=== PATIENT | male | born 1985 | race Caucasian/White ===

== ENCOUNTER → 2024-01-03 | Outpatient (CLI) | payer OTHER ==
--- NOTE | 2024-01-03 13:10 | FL ---
EXAMINATION TYPE: FL barium swallow DATE OF EXAM: 01/03/2024 CLINICAL INDICATION: 38-year-old male M96.A4, left-sided throat pain, sensation of something stuck th ere. Additional left-sided chest pressure. COMPARISON: None Total Fluoroscopy Time: 1 minute 42 seconds Total DAP: 209.6 mGycm2. 42 images obtained. FINDINGS: The swallowing mechanism is normal and hypopharyngeal anatomy is preserved. The patient in dicates the anterior left paramedian midneck as the symptomatic location. No radiopaque foreign body is identified. The cervical and thoracic portions have a normal course and caliber. Some occasional fine tertiary pe ristaltic contractions are noted. Otherwise, the mucosa is normal and no persistent filling defect is encountered. There is a tiny hiatal hernia demonstrated. Valsalva maneuver shows backfilling of the hiatal hernia but no gastroesophageal reflux during the course of the study. IMPRESSION: 1. The patient indicated the anterior left paramedian mid neck as the symptomatic location. No anatom ic abnormality or retained radiopaque foreign body is identified here. 2. Tiny hiatal hernia. Valsalva maneuver shows backfilling of contrast into the hiatal hernia but no gastroesophageal reflux. 3. Some occasional fine tertiary peristaltic contractions, but otherwise, without any significant abn ormality seen.
== END | disposition home or self-care (01) ==
LOC: RADUSWWP 10:41
PROVIDERS: ATTEND Family Medicine
DX: M96.A4 Flail chest associated with chest compression and cardiopulmonary resuscitation (principal); K44.9 Diaphragmatic hernia without obstruction or gangrene
CPT/HCPCS: 74220

== ENCOUNTER → 2024-05-30 | Outpatient (CLI) | payer MEDICARE, OTHER ==
--- NOTE | 2024-06-22 15:16 | US ---
EXAMINATION TYPE: US abdomen complete DATE OF EXAM: 06/21/2024 COMPARISON: 05/20/2012 CLINICAL INDICATION: Male, 38 years old with history of Pain intermittent x 1 year TECHNIQUE: Multiple sonographic images of the abdomen are obtained. FINDINGS: EXAM MEASUREMENTS: Liver Length: 15.1 cm Gallbladder: Surgically absent CBD: 0.3 cm Spleen: 10.4 cm Right Kidney: 10.1 x 5.6 x 5.3 cm Left Kidney: 10.7 x 6.4 x 4.9 cm Pancreas: wnl Liver: Hypoechoic. Limited detailed assessment probably in part due to patient body habitus. Gallbladder: Surgically absent Evidence for sonographic Sanford's sign: No CBD: wnl Spleen: wnl Right Kidney: wnl Left Kidney: wnl Upper IVC: wnl Abd Aorta: wnl IMPRESSION: 1. No gallstones or biliary ductal dilatation. 2. Hypoechoic liver possibly technical due to patient body habitus. Correlate with LFTs to exclude he patitis.
== END | disposition home or self-care (01) ==
LOC: RADUSWWP 12:00
PROVIDERS: ATTEND Family Medicine
DX: R10.13 Epigastric pain
CPT/HCPCS: 76700

== ENCOUNTER → 2024-08-29 | Outpatient (CLI) | payer MEDICARE, OTHER ==
--- NOTE | 2024-08-29 19:02 | CT ---
EXAMINATION TYPE: CT chest wo con DATE OF EXAM: 08/28/2024 COMPARISON: HISTORY: Chest pain, varying in intensity x1+ year. CT DLP: 382.9 mGycm, Automated exposure control for dose reduction was used. CONTRAST: Performed injected with 0 mL of Isovue 300. TECHNIQUE: Axial images were obtained at 5 mm thick sections. Reconstructed images are reviewed on [employer] computer in the coronal plane. FINDINGS: Portion of the thyroid visualized is normal. No suspicious lung nodules or focal infiltrates are present. No enlarged mediastinal or hilar adenopathy is evident. The ascending aorta diameter at the level o f the main pulmonary artery is 3.6 cm. The main pulmonary artery diameter at the bifurcation is 2.[address] sections are obtained through the upper abdomen. Abdomen is essentially unremarkable. Gall bladder is surgically absent IMPRESSION: 1. No acute pulmonary process CT chest [facility] Aman Moy, , 08/29/2024 6:59 PM
== END | disposition home or self-care (01) ==
LOC: RADCTMAIN 17:58
PROVIDERS: ATTEND Family Medicine
DX: R07.9 Chest pain, unspecified (principal)
CPT/HCPCS: 71250

== ENCOUNTER → 2024-10-03 | Outpatient (CLI) | payer MEDICARE, OTHER ==
--- NOTE | 2024-10-03 11:59 | CA ---
Exercise Stress Test Report Name: Mele Toledo Exam Date: 10/03/2024 11:09 Exam Location: [facility] Ht (in): 69 Wt (lb): 203 BSA: 2.08 Ordering Phys: Shayy Viramontes MD Referring Phys: SHAYY VIRAMONTES Technologist: Robinson Quiros Age: 38 Gender: M : 1985 Procedure CPT: Indications: R07.9 CHEST PAIN ICD-10 Codes: Patient History: Medications: ASPIRIN, IBUPROFEN, LOSARTAN Meds past 24 hrs: Pretest Chest Pain: STRESS TEST Thomas Protocol Exercise Duration (min:sec): 09:[address] Depressions (mm): Angina Score: Klein Score: Resting HR (bpm): 75 Peak HR (bpm): 157 Resting BP (mmHg): 135 / 83 Peak BP (mmHg): 205 / 65 MPHR: 181 Target HR: 154 % MPHR: 87 METS: 10.3 Total Dose: Peak Dose: Atropine: Double Product: 33111 BP Response: Stress Termination: Reached target heart rate Stress Symptoms: SLIGHTLY DIZZY Stress Summary: ECG ANALYSIS Resting ECG: Stress ECG: CONCLUSIONS Baseline EKG revealed a normal sinus rhythm without significant ST-T changes. Patient walked on a standard Thomas protocol for 9 minutes and achieved a maximum heart rate of 157 bpm which is 87% of predicted maximal. Patient did not have any angina there was no arrhythmia. He felt slightly dizzy at peak exercise. There were no ST segment changes to indicate ischemia. There was no significant arrhythmia. By EKG criteria this is a negative stress test with fair exercise capacity Dr. Anu Wong MD (Electronically Signed) Final Date: 03 October 2024 11:59
== END | disposition home or self-care (01) ==
LOC: RADNMMAIN 10:45
PROVIDERS: ATTEND Family Medicine
DX: R07.9 Chest pain, unspecified (principal); R42 Dizziness and giddiness
CPT/HCPCS: 93017